=== PATIENT | female | born 1940 | race Caucasian/White ===

== ENCOUNTER 2021-03-19 12:25 | Emergency (ER) | payer OTHER ==
[2021-03-19 13:29] LABS: Absolute Lymphocytes (CBC) 1.8 K/uL (0.7-4.9); Basophils % 1.3 % (0-1.3); Hematocrit 36.1 % (36.0-45.0); Lymphocytes % 25.4 % (15.3-44.8); RBC Red Blood Cell Count 5.07 M/uL (3.86-4.86)
[2021-03-19 13:34] LABS: Protime INR 0.97
[2021-03-19 13:45] LABS: ALT/SGPT 19 U/L (12-78); AST/SGOT 14 U/L (15-37); Albumin 3.6 g/dL (3.4-5.0); Alkaline Phosphatase 72 U/L (45-117); BUN Blood Urea Nitrogen 14 mg/dL (7-18); Bicarbonate 29 mmol/L (21-32); Bilirubin Direct 0.1 mg/dL (0-0.2); Bilirubin Total 0.6 mg/dL (0.2-1.0); Glucose Level 93 mg/dL (74-106); Magnesium 2.1 mg/dL (1.8-2.4); NT PRO-BNP 510 pg/mL (<450); Potassium 3.9 mmol/L (3.5-5.1); Protein, Total 7.9 g/dL (6.4-8.2); Sodium Level 141 mmol/L (136-145); Troponin (Emerg Dept Use Only) < 0.02 ng/mL (0.0-0.045)
--- NOTE | 2021-03-19 14:03 | RAD REPORT ---
EXAM DESCRIPTION: RAD - Chest Single View - 03/19/2021 1:40 pm CLINICAL HISTORY: DYSPNEA COMPARISON: None TECHNIQUE: AP portable chest image was obtained 03/19/2021 1:40 pm . FINDINGS: No focal lung parenchymal process. No failure or volume overload. Hilar regions are within range of normal. Interstitial pattern is prominent believed to be baseline chronic interstitial lung disease. Acute interstitial infiltrate, while not excluded, is felt to be on likely. Heart and vascu lature are normal. No measurable pleural effusion and no pneumothorax. No acute bony abnormality seen . No acute aortic findings suspected. IMPRESSION: No acute cardiopulmonary process. Prominence of the interstitial pattern is favored to be chronic rather than acute edema or infiltrate .
--- NOTE | 2021-03-19 14:35 | ER ---
Nurse's Notes [facility] Name: Keyla Angel Age: 80 yrs Sex: Female : 1940 Arrival Date: 03/19/2021 Time: 12:29 Bed 23 Private MD: Diagnosis: Acute upper respiratory infection, unspecified Presentation: 03/19 12:44 Chief complaint: Patient states: Not feeling well over the weekend. SOB that began 2 ss days ago and cough that was worse this morning. Coronavirus screen: Client denies travel out of the [place] in the last 14 days. Client presents with at least one sign or symptom that may indicate coronavirus-19. Standard/surgical mask placed on the client. Provider contacted for isolation considerations. Ebola Screen: Patient denies exposure to infectious person. Patient denies travel to an Ebola-affected area in the 21 days before illness onset. Initial Sepsis Screen: Does the patient meet any 2 criteria? No. Patient's initial sepsis screen is negative. Does the patient have a suspected source of infection? No. Patient's initial sepsis screen is negative. Risk Assessment: Do you want to hurt yourself or someone else? Patient reports no desire to harm self or others. Onset of symptoms was March 16, 2021. 12:44 Method Of Arrival: Ambulatory ss 12:44 Acuity: JENNIFER 3 ss Triage Assessment: 13:00 Respiratory: Onset: The symptoms/episode began/occurred about two days ago, the patient vg1 has mild shortness of breath. Historical: - Allergies: 12:46 Feaprff-Klx-Tyw Reductase Inhibitors; ss - PMHx: 12:46 Hypertension; Crohn's; ss - PSHx: 12:46 foot sx; Hysterectomy; ss - Immunization history:: Adult Immunizations unknown. - Social history:: Smoking status: Patient denies any tobacco usage or history of. Screenin:57 Abuse screen: Denies threats or abuse. Nutritional screening: No deficits noted. vg1 Tuberculosis screening: No symptoms or risk factors identified. Fall Risk No fall in past 12 months (0 pts). No secondary diagnosis (0 pts). No IV (0 pts). Ambulatory Aid- None/Bed Rest/Nurse Assist (0 pts). Gait- Normal/Bed Rest/Wheelchair (0 pts) Mental Status- Oriented to own ability (0 pts). Total Brush Fall Scale indicates No Risk (0-24 pts). Assessment: 12:56 General: Appears in no apparent distress. comfortable, Behavior is calm, cooperative. vg1 Pain: Denies pain. Neuro: Level of Consciousness is awake, alert, obeys commands, Oriented to person, place, time, situation. Cardiovascular: Patient's skin is warm and dry. Respiratory: Reports shortness of breath on exertion cough that is dry, Airway is patent Respiratory effort is even, unlabored, Breath sounds are clear bilaterally. GI: Reports nausea. : No signs and/or symptoms were reported regarding the genitourinary system. EENT: No signs and/or symptoms were reported regarding the EENT system. Derm: Skin is intact, Skin is pink, warm \T\ dry. Musculoskeletal: Circulation, motion, and sensation intact. 14:14 Reassessment: Patient appears in no apparent distress at this time. No changes from vg1 previously documented assessment. Patient and/or family updated on plan of care and expected duration. Pain level reassessed. Patient is alert, oriented x 3, equal unlabored respirations, skin warm/dry/pink. Vital Signs: 12:44 BP 151 / 74; Pulse 78; Resp 16; Temp 97.9(TE); Pulse Ox 99% on R/A; Weight 73.94 kg; ss Height 4 ft. 11 in. (149.86 cm); Pain 0/10; 12:57 BP 134 / 61; Pulse 78; Resp 18; Pulse Ox 100% on R/A; vg1 14:00 BP 139 / 6; Pulse 66; Resp 18; Pulse Ox 97% on R/A; vg1 12:44 Body Mass Index 32.92 (73.94 kg, 149.86 cm) ED Course: 12:29 Patient arrived in ED. mr 12:45 Triage completed. ss 12:46 Arm band placed on right wrist. ss 12:50 Vivian Dale, KEVIN is Primary Nurse. vg1 12:56 Zuleima Staley FNP-C [facility]. kb 12:56 Marlon Young MD is Attending Physician. kb 12:58 Patient has correct armband on for positive identification. Placed in gown. Bed in low vg1 position. Call light in reach. Side rails up X 1. 13:13 Initial lab(s) drawn, by me, sent to lab. Inserted saline lock: 20 gauge in right vg1 antecubital area, using aseptic technique. Blood collected. 13:17 COVID swab sent to lab. vg1 13:41 XRAY Chest (1 view) In Process Unspecified. EDMS 14:45 No provider procedures requiring assistance completed. IV discontinued, intact, vg1 bleeding controlled, No redness/swelling at site. Pressure dressing applied. Administered Medications: No medications were administered Outcome: 14:35 Discharge ordered by MD. spann 14:45 Discharged to home ambulatory. vg1 14:45 Condition: stable 14:45 Discharge instructions given to patient, Instructed on discharge instructions, follow up and referral plans. Demonstrated understanding of instructions, follow-up care. 14:46 Patient left the ED. vg1 Signatures: Dispatcher [employer] EDMS Zuleima Staley, PROPULSION MOTOR AND GENERATOR REPAIRERLorrie PROPULSION MOTOR AND GENERATOR REPAIRER-Jolene Soto Kelle Carpenter, RN RN Vivian Culver RN RN vg1
--- NOTE | 2021-03-19 14:35 | EDPHYS ---
Physician Documentation [facility] Name: Keyla Angel Age: 80 yrs Sex: Female : 1940 Arrival Date: 03/19/2021 Time: 12:29 Bed 23 Private MD: ED Physician Marlon Young HPI: 03/19 20:15 This 80 yrs old Female presents to ER via Ambulatory with complaints of kb Shortness Of Breath, Cough, Weakness, Dizziness. 20:15 The patient has experienced similar episodes in the past, a few times. The patient has kb not recently seen a physician. "I just wanted to make sure I didn't have covid. I've been having some shortness of breath, a cough and some nausea, but it could be my asthma.". 20:15 The patient has shortness of breath with light activity. Onset: The symptoms/episode kb began/occurred 2 day(s) ago. Duration: The symptoms are intermittent. The patient's shortness of breath is aggravated by exertion, is alleviated by rest. Associated signs and symptoms: Pertinent positives: non-productive cough, nausea, Pertinent negatives: chest pain, productive cough, fever. Severity of symptoms: At their worst the symptoms were mild in the emergency department the symptoms are unchanged. Historical: - Allergies: 12:46 Gurzafv-Mpv-Nbs Reductase Inhibitors; ss - PMHx: 12:46 Hypertension; Crohn's; ss - PSHx: 12:46 foot sx; Hysterectomy; ss - Immunization history:: Adult Immunizations unknown. - Social history:: Smoking status: Patient denies any tobacco usage or history of. ROS: 20:14 Constitutional: Negative for fever, chills, and weight loss. kb 20:14 Respiratory: Positive for cough, shortness of breath, Negative for dyspnea on exertion, hemoptysis, orthopnea, pleurisy, sputum production, wheezing. 20:14 Abdomen/GI: Positive for nausea, Negative for abdominal pain, vomiting, diarrhea, constipation. 20:14 All other systems are negative. Exam: 13:30 Constitutional: This is a well developed, well nourished patient who is awake, alert, kb and in no acute distress. Head/Face: Normocephalic, atraumatic. ENT: Moist Mucous membranes Cardiovascular: Regular rate and rhythm with a normal S1 and S2. No gallops, murmurs, or rubs. No pulse deficits. Respiratory: Respirations even and unlabored. No increased work of breathing, no retractions or nasal flaring. Abdomen/GI: Soft, non-tender. No distention Skin: Warm, dry with normal turgor. Normal color. MS/ Extremity: Pulses equal, no cyanosis. Neurovascular intact. Full, normal range of motion. Neuro: Awake and alert, GCS 15, oriented to person, place, time, and situation. Moves all extremities. Normal gait. Psych: Awake, alert, with orientation to person, place and time. Behavior, mood, and affect are within normal limits. 13:30 ECG was reviewed by the Attending Physician. Vital Signs: 12:44 BP 151 / 74; Pulse 78; Resp 16; Temp 97.9(TE); Pulse Ox 99% on R/A; Weight 73.94 kg; ss Height 4 ft. 11 in. (149.86 cm); Pain 0/10; 12:57 BP 134 / 61; Pulse 78; Resp 18; Pulse Ox 100% on R/A; vg1 14:00 BP 139 / 6; Pulse 66; Resp 18; Pulse Ox 97% on R/A; vg1 12:44 Body Mass Index 32.92 (73.94 kg, 149.86 cm) ss MDM: 12:57 Patient medically screened. kb 14:11 Data reviewed: vital signs, nurses notes. Data interpreted: Pulse oximetry: on room air kb is 100 %. Interpretation: normal. 14:34 Counseling: I had a detailed discussion with the patient and/or guardian regarding: the kb historical points, exam findings, and any diagnostic results supporting the discharge/admit diagnosis, lab results, radiology results, the need for outpatient follow up, a family practitioner, to return to the emergency department if symptoms worsen or persist or if there are any questions or concerns that arise at home. 03/19 13:07 Order name: Basic Metabolic Panel 03/19 13:07 Order name: CBC with Diff 03/19 13:07 Order name: LFT's 03/19 13:07 Order name: Magnesium kb 03/19 13:07 Order name: NT PRO-BNP 03/19 13:07 Order name: PT-INR; Complete Time: 13:55 03/19 13:07 Order name: Troponin (emerg Dept Use Only); Complete Time: 13:52 kb 03/19 13:08 Order name: Basic Metabolic Panel; Complete Time: 13:52 EDMS 14 13:08 Order name: CBC with Automated Diff; Complete Time: 13:31 EDMS 14 13:08 Order name: Liver (Hepatic) Function; Complete Time: 13:52 EDMS 14 13:08 Order name: Magnesium; Complete Time: 13:52 EDMS 14 13:08 Order name: NT PRO-BNP; Complete Time: 13:52 EDMS 14 14:19 Order name: SARS-COV-2 RT PCR; Complete Time: 14:21 EDMS 03/19 13:07 Order name: XRAY Chest (1 view); Complete Time: 14:11 kb 03/19 13:07 Order name: EKG; Complete Time: 13:08 kb 03/19 13:07 Order name: Cardiac monitoring; Complete Time: 13:25 kb 03/19 13:07 Order name: EKG - Nurse/Tech; Complete Time: 13:25 kb 03/19 13:07 Order name: IV Saline Lock; Complete Time: 13:16 kb 03/19 13:07 Order name: Labs collected and sent; Complete Time: 13:16 kb 03/19 13:07 Order name: O2 Per Protocol; Complete Time: 13:16 kb 03/19 13:07 Order name: O2 Sat Monitoring; Complete Time: 13:16 kb EC:30 Rate is 62 beats/min. Rhythm is regular. QRS [place] is Normal. [place] interval is normal at kb 156 msec. QRS interval is normal at 76 msec. QT interval is normal at 374 msec. Administered Medications: No medications were administered Disposition: 03/20 07:15 Co-signature as Attending Physician, Marlon Young MD I agree with the assessment and yareli plan of care. Disposition: 03/19/21 14:35 Discharged to Home. Impression: Acute upper respiratory infection, unspecified. - Condition is Stable. - Discharge Instructions: Upper Respiratory Infection, Adult, [id number]. - Medication Reconciliation Form, Thank You Letter, Antibiotic Education, Prescription Opioid Use form. - Follow up: Emergency Department; When: As needed; Reason: Worsening of condition. Follow up: Private Physician; When: 2 - 3 days; Reason: Recheck today's complaints, Continuance of care, Re-evaluation by your physician. Signatures: Dispatcher [employer] [facility] Zuleima Staley, HARPAL-Irwin ROWAN-Marlon Mckeon MD MD cha Smirch, Shelby, RN RN ss Vivian Dale, RN RN vg1 Corrections: (The following items were deleted from the chart) 03/19 13:27 13:08 CORONAVIRUS+MR.LAB.BRZ ordered. [facility] 14:46 14:35 03/19/2021 14:35 Discharged to Home. Impression: Acute upper respiratory vg1 infection, unspecified. Condition is Stable. Forms are Medication Reconciliation Form, Thank You Letter, Antibiotic Education, Prescription Opioid Use. Follow up: Emergency Department; When: As needed; Reason: Worsening of condition. Follow up: Private Physician; When: 2 - 3 days; Reason: Recheck today's complaints, Continuance of care, Re-evaluation by your physician. kb
[2021-03-19 15:22] VITALS: TEMP 97.9
[2021-03-19 15:27] VITALS: BP 139/6; O2SAT 97
--- NOTE | 2021-03-20 10:29 | EKG ---
Test Date: 2021-03-19 Test Time: 13:21:30 Research Associate: MIKA MEASUREMENT RESULTS: Intervals: Rate: 62 LA: 156 QRSD: 76 QT: 374 QTc: 379 [place]: P: 41 LA: 156 QRS: 61 T: 52 INTERPRETIVE STATEMENTS: Normal sinus rhythm Cannot rule out Anterior infarct, age undetermined Abnormal ECG No previous ECG available for comparison Electronically Signed On 03-20-21 10:25:52 CDT by Theron Joseph
== END 2021-03-19 14:46 | disposition home or self-care (01) ==
LOC: ER 12:25
DX: J06.9 Acute upper respiratory infection, unspecified (principal); Z20.822 Contact with and (suspected) exposure to COVID-19; I10 Essential (primary) hypertension; Z88.8 Allergy status to other drugs, medicaments and biological substances
CPT/HCPCS: 93005; 85025; 80048; 36415; 83735; 85610; 80076; 84484; 83880; 71045; U0003; 99283